=== PATIENT | male | born 1990 | race Caucasian/White ===

== ENCOUNTER 2019-08-07 02:10 | Inpatient (IN) | payer OTHER ==
[~2019-08-07] VITALS: Ht 165.1 cm; Wt 63.6 kg
[2019-08-07] MEDS ORDERED: TETanus/Pertussis (Acell)/Diphther VAC/PF (Tdap-Adult) 0.5ml syringe IMVAC ONE (02:20)
[2019-08-07] MEDS ORDERED: ceFAZolin 1000mg inj IV ONE (02:20)
[2019-08-07] MEDS ORDERED: bacitracin 15gm ointment TP ONE (02:20)
[2019-08-07] MEDS ORDERED: gentamicin in saline, iso-osm 80 MG/50 ML premix IV ONE (02:20)
[2019-08-07] MEDS ORDERED: normal saline 1000ml 1,000 ML IVB ONE ×5 (02:23→05:20)
[2019-08-07] MEDS ORDERED: normal saline 1000ML IV soln IVB ONE (02:25)
[2019-08-07] MEDS ORDERED: KETAMINE IV ONE (02:25)
[2019-08-07] MEDS ORDERED: NORMAL SALINE IV ONE (02:25)
[2019-08-07] MEDS ORDERED: LORazepam 2 mg/ml vial IV ONE (02:25)
[2019-08-07] MEDS ORDERED: haloperidol lactate 5mg/ml inj IM ONE ×2 (02:30)
[2019-08-07] MEDS ORDERED: diphenhydrAMINE 50 mg/ml inj IM ONE ×2 (02:30)
[2019-08-07] MEDS ORDERED: LORazepam 2 mg/ml vial IM ONE (02:30)
[2019-08-07] MEDS ORDERED: cefazolin/dext.iso 2gm/100ml 100 ML IV ONE (02:35)
[2019-08-07] MEDS ORDERED: gentamicin inj 80 MG in normal saline 100ml IV soln 100 ML IV ONE (02:40)
[2019-08-07 02:49] LABS: BASOPHILS # (AUTO) 0.1 X10'3 (0-0.2); BASOPHILS % (AUTO) 1.2 % (0-1); EOSINOPHILS # (AUTO) 0.1 X10'3 (0-0.9); EOSINOPHILS % (AUTO) 1.5 % (0-6); HEMATOCRIT 40.5 % (42.0-52.0); HEMOGLOBIN 13.7 g/dl (14.0-17.9); LYMPHOCYTES # (AUTO) 2.5 X10'3 (1.1-4.8); LYMPHOCYTES % (AUTO) 29.8 % (21-51); MEAN CORPUSCULAR HGB CONC 33.8 g/dL (33.0-36.5); MEAN CORPUSCULAR VOLUME 94.7 FL (78-98); MEAN PLATELET VOLUME 8.8 FL (7.4-10.4); MONOCYTES # (AUTO) 0.5 X10'3 (0-0.9); MONOCYTES % (AUTO) 5.9 % (2-12); NEUTROPHILS # (AUTO) 5.1 X10'3 (1.8-7.7); NEUTROPHILS % (AUTO) 61.6 % (42-75); PLATELET COUNT 299 X10'3 (140-440); RED BLOOD COUNT 4.27 X10'6 (4.70-6.10); RED CELL DISTRIBUTION WIDTH 13.2 % (11.5-14.5); WHITE BLOOD COUNT 8.4 X10'3 (4.5-11.0)
--- NOTE | 2019-08-07 02:52 | NUR ---
left lower leg involvement with multiple gashes. 7x2 cm front of leg 4x5 cm front of leg 7x2 cm behind leg 2x1 cm behind leg 3x 0.5cm behind leg
[2019-08-07 03:01] LABS: PARTIAL THROMBOPLASTIN TIME 23 SECONDS (22-32)
[2019-08-07 03:04] LABS: ALANINE AMINOTRANSFERASE 31 U/L (12-78); ALBUMIN 4.1 G/DL (3.4-5.0); ALBUMIN/GLOBULIN RATIO 1.2 (1.1-1.5); ALKALINE PHOSPHATASE 60 IU/L (46-116); ANION GAP 11 (8-16); ASPARTATE AMINO TRANSFERASE 34 U/L (10-37); BILIRUBIN,TOTAL 0.4 MG/DL (0.1-1.0); BLOOD UREA NITROGEN 13 MG/DL (7-18); BUN/CREATININE RATIO 7.4 (5.4-32.0); CALCIUM 8.7 MG/DL (8.5-10.1); CHLORIDE 106 MMOL/L (99-107); CREATININE 1.76 MG/DL (0.60-1.10); GLUCOSE 136 MG/DL (70-104); POTASSIUM 3.8 MMOL/L (3.5-5.1); SODIUM 143 MMOL/L (135-145); TOTAL CARBON DIOXIDE 26.2 MMOL/L (24-32); TOTAL PROTEIN 7.5 G/DL (6.4-8.2); eGFR 47 ML/MIN
[2019-08-07 03:20] LABS: ETHANOL 0.326 GM/DL (0.0-0.010)
[2019-08-07] MEDS ORDERED: LIDOcaine 1% 30ml preserv. free vial IJ ONE (03:20)
--- NOTE | 2019-08-07 03:24 | NUR ---
at suturing now
[2019-08-07] MEDS ORDERED: haloperidol lactate 5mg/ml inj IM STA (03:25)
[2019-08-07] MEDS ORDERED: diphenhydrAMINE 50 mg/ml inj IV STA (03:25)
--- NOTE | 2019-08-07 03:26 | NUR ---
pt starting to stir and resist so MD ordered more medication.
[2019-08-07 03:34] LABS: CLARITY,URINE CLEAR (Clear); COLOR,URINE YELLOW (Yellow); GLUCOSE, URINE NEGATIVE (Neg); KETONES,URINE NEGATIVE (Neg); LEUKOCYTE ESTERASE ,URINE NEGATIVE (Neg); NITRITES, URINE NEGATIVE (Neg); OCCULT BLOOD,URINE NEGATIVE (Neg); PH,URINE 5.5 (4.8-8.0); PROTEIN,URINE NEGATIVE (Neg); UROBILINOGEN,URINE 0.2 E.U/dL (0.2-1.0)
[2019-08-07 03:42] LABS: UA COLLECTION TYPE STRAIGHT CATH
--- NOTE | 2019-08-07 03:43 | NUR ---
pt resting, md injecting more lidocaine into lateral calf for suture prep
[2019-08-07 03:45] LABS: URINE AMPHETAMINE SCREEN NEGATIVE (Neg); URINE BARBITUATE SCREEN NEGATIVE (Neg); URINE BENZODIAZEPINES SCREEN NEGATIVE (Neg); URINE CANNABINOID SCREEN NEGATIVE (Neg); URINE COCAINE SCREEN NEGATIVE (Neg); URINE METHADONE SCREEN NEGATIVE (Neg); URINE OPIATE SCREEN NEGATIVE (Neg); URINE PHENCYCLIDINE SCREEN NEGATIVE (Neg)
--- NOTE | 2019-08-07 03:54 | NUR ---
pt starting to awaken ordered etomidate
[2019-08-07] MEDS ORDERED: etomidate 2mg/ml inj. IV ONE ×4 (03:55→05:40)
--- NOTE | 2019-08-07 03:57 | NUR ---
RT at BS
--- NOTE | 2019-08-07 03:57 | NUR ---
etomidate 10 mg ordered IV per MD, so given. wants etomidate in incriments. NRB 15L
--- NOTE | 2019-08-07 04:05 | NUR ---
gave pt etomidate 5 mg IV per MD order.
--- NOTE | 2019-08-07 04:13 | NUR ---
pt starting to move around again, ordered etomidate 5 mg IV now
[2019-08-07] MEDS ORDERED: fentaNYL/PF 50MCG/1 ML 2ML syringe IV ONE (04:15)
--- NOTE | 2019-08-07 04:19 | NUR ---
adm etomidate 5 mg IV per MD order, MD at BS suturing.
--- NOTE | 2019-08-07 04:21 | NUR ---
ordered and adm fentanyl 50mcg IV per MD order. Pt was moving around.
[2019-08-07] MEDS ORDERED: MIDAZolam 5mg/ml 2ml vial IV ONE (04:25)
--- NOTE | 2019-08-07 04:27 | NUR ---
adm versed 5 mg IV
--- NOTE | 2019-08-07 04:35 | NUR ---
His bp decreased so another liter of NS ordered and hung on pressure bag. Bag #3 is nearly is as well. I gave him etomidate 5 mg IV as well as the versed.
--- NOTE | 2019-08-07 04:42 | NUR ---
still at suturing. He has completed the anterior lower leg. working on lateral lower leg now.
--- NOTE | 2019-08-07 04:46 | NUR ---
bag #3 of NS infused. The 4th has been running and continues to infuse on pressure bag.
--- NOTE | 2019-08-07 05:02 | NUR ---
he was moving again, so another etomidate 5 mg IV adm per MD orders.
--- NOTE | 2019-08-07 05:03 | NUR ---
he is still moving a bit.
--- NOTE | 2019-08-07 05:11 | NUR ---
flipped him onto his tummy and adm etomidate 5 mg IV for him awakening. suturing back of calf.
--- NOTE | 2019-08-07 05:18 | NUR ---
adm etomidate 10 mg IV
--- NOTE | 2019-08-07 05:20 | NUR ---
bp dropped. Started NS 1L bolus and this is liter #5
--- NOTE | 2019-08-07 05:23 | NUR ---
bp improving 90/45
--- NOTE | 2019-08-07 05:31 | NUR ---
Adm etomidate 10 mg per MD order, and I also ordered it. The patient was moving again. He is maintaining VSS and RT has remained at BS. MD informed police that the patient will be admitted.
--- NOTE | 2019-08-07 05:34 | NUR ---
He seems to be still. still suturing.
--- NOTE | 2019-08-07 05:37 | NUR ---
he is moving and moaning and fighting. MD ordered another 5 mg of etomidate IV. So done out of bottle that is opened.
--- NOTE | 2019-08-07 05:48 | NUR ---
done suturing. He wants it washed really good, bacitracin, dressings.
--- NOTE | 2019-08-07 05:57 | NUR ---
wounds cleansed, bacitracin to all sites and then xeroform placed and now 4 x 4s, layer of kerlix roll and then coban.
--- NOTE | 2019-08-07 06:00 | NUR ---
Pt repositioned to his back, linen changed and he is covered in warm blankets and lights dimmed. VSS.
[2019-08-07] MEDS ORDERED: ondansetron/PF 4mg/2ml inj IV PRN ×2 (06:40→09:35)
--- NOTE | 2019-08-07 06:44 | NUR ---
Pt somnolent from procedures;unable to complete med rec @ this time.
[2019-08-07] MEDS: fentaNYL/PF 50MCG/1 ML 2ML syringe IV PRN ×4 (06:48→11:56)
--- NOTE | 2019-08-07 06:59 | NUR ---
pt belongings: cowboy boots, black jeans, belt w/ silver buckle, wallet.
--- NOTE | 2019-08-07 07:28 | NUR ---
Discussed pt's BP w/ edmd Yin; no new orders received @ this time.
[2019-08-07] MEDS ORDERED: piperacillin/tazo 3.375gm/50ml 50 ML IV ONE (07:30)
[2019-08-07 08:05] LABS: MEAN PLATELET VOLUME 8.7 FL (7.4-10.4); RED BLOOD COUNT 3.24 X10'6 (4.70-6.10)
[2019-08-07 08:07] LABS: ALANINE AMINOTRANSFERASE 29 U/L (12-78); ALBUMIN 3.3 G/DL (3.4-5.0); ALBUMIN/GLOBULIN RATIO 1.3 (1.1-1.5); ALKALINE PHOSPHATASE 45 IU/L (46-116); ANION GAP 10 (8-16); ASPARTATE AMINO TRANSFERASE 62 U/L (10-37); BASOPHILS % (AUTO) 0.2 % (0-1); BILIRUBIN,TOTAL 0.3 MG/DL (0.1-1.0); BLOOD UREA NITROGEN 13 MG/DL (7-18); BUN/CREATININE RATIO 10.2 (5.4-32.0); CALCIUM 7.1 MG/DL (8.5-10.1); CHLORIDE 113 MMOL/L (99-107); CREATININE 1.27 MG/DL (0.60-1.10); EOSINOPHILS % (AUTO) 0 % (0-6); GLUCOSE 104 MG/DL (70-104); HEMATOCRIT 31.1 % (42.0-52.0); HEMOGLOBIN 10.7 g/dl (14.0-17.9); LYMPHOCYTES # (AUTO) 1.2 X10'3 (1.1-4.8); LYMPHOCYTES % (AUTO) 9.8 % (21-51); MEAN CORPUSCULAR HEMOGLOBIN 32.9 PG (27.0-31.0); MEAN CORPUSCULAR HGB CONC 34.4 g/dL (33.0-36.5); MEAN CORPUSCULAR VOLUME 95.7 FL (78-98); MONOCYTES # (AUTO) 0.9 X10'3 (0-0.9); MONOCYTES % (AUTO) 7.6 % (2-12); NEUTROPHILS # (AUTO) 9.8 X10'3 (1.8-7.7); NEUTROPHILS % (AUTO) 82.4 % (42-75); PLATELET COUNT 195 X10'3 (140-440); POTASSIUM 4.2 MMOL/L (3.5-5.1); RED CELL DISTRIBUTION WIDTH 12.7 % (11.5-14.5); SODIUM 145 MMOL/L (135-145); TOTAL CARBON DIOXIDE 21.6 MMOL/L (24-32); TOTAL PROTEIN 5.9 G/DL (6.4-8.2); WHITE BLOOD COUNT 11.9 X10'3 (4.5-11.0); eGFR 68 ML/MIN
--- NOTE | 2019-08-07 08:15 | NUR ---
complete linen change performed; missed urinal.
[2019-08-07 08:30] LABS: CREATINE KINASE 2946 U/L (39-308)
--- NOTE | 2019-08-07 09:33 | NUR ---
1 dose Fentanyl given @ 0832; additional 1ml administered from that same vial @ 0932. No waste from vial; note added to [employer]
[2019-08-07] MEDS ORDERED: dextrose 50%-water 50ml dispensing syringe IV PRN (09:35)
[2019-08-07] MEDS ORDERED: HYDROcodone/acetaminophen 5mg/325mg tablet PO PRN (09:35)
[2019-08-07] MEDS ORDERED: potassium Cl 20 mEq SR tablet PO PRN ×2 (09:35)
[2019-08-07] MEDS ORDERED: potassium CL 10mEq/100ml bag 100 ML IV PRN ×2 (09:35)
[2019-08-07] MEDS ORDERED: acetaminophen 650mg rectal suppository RC PRN (09:35)
[2019-08-07] MEDS ORDERED: magnesium 4gm in 100ml NS 100 ML IV PRN (09:35)
[2019-08-07] MEDS ORDERED: LORazepam 2 mg/ml vial IV PRN (09:35)
[2019-08-07] MEDS ORDERED: magnesium Cl slow-release 64mg tablet PO PRN (09:35)
[2019-08-07] MEDS ORDERED: magnesium hydroxide 30ml (MOM) UD suspension PO PRN (09:35)
[2019-08-07] MEDS ORDERED: thiamine 100mg/ml 2ml inj. IV ONE (09:35)
[2019-08-07] MEDS ORDERED: haloperidol lactate 5mg/ml inj IM PRN (09:35)
[2019-08-07] MEDS ORDERED: diphenhydrAMINE 25mg capsule PO PRN (09:35)
[2019-08-07] MEDS ORDERED: magnesium 2GM in 50ml NS 50 ML IV PRN (09:35)
[2019-08-07] MEDS ORDERED: bisacodyl 10mg suppository rectal RC PRN (09:35)
[2019-08-07] MEDS ORDERED: acetaminophen 325mg tablet PO PRN ×2 (09:35)
[2019-08-07] MEDS ORDERED: morphine 2 MG/ML inj. syringe IV PRN (09:35)
[2019-08-07] MEDS ORDERED: haloperidol 5mg tablet PO PRN (09:35)
[2019-08-07] MEDS ORDERED: mag hydrox/Alum hydrox/simeth 30ml oral suspension PO PRN (09:35)
[2019-08-07] MEDS: dextrose 5%-normal saline 1,000 ML IV SCH ×2 (09:57→19:12)
[2019-08-07 10:06] LABS: ANISOCYTOSIS 1+; PLATELET ESTIMATE NORMAL
[2019-08-07 10:14] LABS: HEMOGLOBIN A1C 5.1 % (4.5-6.2)
--- NOTE | 2019-08-07 11:08 | NUR ---
spoke with pt's father Caio Sinclair. please call with any updates at [phone]
--- NOTE | 2019-08-07 11:23 | NUR ---
Pt AOX3. Ice chips provided. Lunch tray order confirmed.
--- NOTE | 2019-08-07 11:52 | NUR ---
called report to andres CHENG.
--- NOTE | 2019-08-07 12:00 | NUR ---
Patient in room [facility] 4022B. I have received report from PROSPER BOONE IN ED and had the opportunity to ask questions and assume patient care AT 1215.
[2019-08-07] MEDS ORDERED: NO HOME MEDS (12:14)
[2019-08-07 12:15] VITALS: BP 127/102
[2019-08-07] MEDS: HYDROcodone/acetaminophen 10/325mg tab PO PRN ×2 (13:26→21:01)
[2019-08-07 18:00] VITALS: BP 137/76
--- NOTE | 2019-08-07 18:15 | NUR ---
Patient in room ORTHO 4022. I have received report from Carly CHENG and had the opportunity to ask questions and assume patient care.
--- NOTE | 2019-08-07 18:44 | NUR ---
Problems reprioritized. Patient report given, questions answered & plan of care reviewed with PROSPER PETE.
[2019-08-07] MEDS: propranolol 10mg tablet PO SCH (19:12)
[2019-08-07] MEDS: K and/or MAG REPLACEMENT MC SCH (20:00)
[2019-08-07 22:00] VITALS: BP 119/56
[2019-08-08] VITALS (22 sets, daily range): BP systolic 119–145; BP diastolic 61–91
[2019-08-08] MEDS: dextrose 5%-normal saline 1,000 ML IV SCH ×4 (02:40→22:14)
[2019-08-08] MEDS: HYDROcodone/acetaminophen 10/325mg tab PO PRN ×4 (02:54→22:14)
[2019-08-08 06:08] LABS: BASOPHILS % (AUTO) 0.2 % (0-1); EOSINOPHILS % (AUTO) 0.2 % (0-6); HEMATOCRIT 28.7 % (42.0-52.0); HEMOGLOBIN 10.1 g/dl (14.0-17.9); LYMPHOCYTES # (AUTO) 0.7 X10'3 (1.1-4.8); LYMPHOCYTES % (AUTO) 9.7 % (21-51); MEAN CORPUSCULAR HGB CONC 35.1 g/dL (33.0-36.5); MEAN CORPUSCULAR VOLUME 94.1 FL (78-98); MEAN PLATELET VOLUME 9.1 FL (7.4-10.4); MONOCYTES # (AUTO) 0.8 X10'3 (0-0.9); NEUTROPHILS # (AUTO) 6.2 X10'3 (1.8-7.7); NEUTROPHILS % (AUTO) 79.9 % (42-75); PLATELET COUNT 164 X10'3 (140-440); RED BLOOD COUNT 3.06 X10'6 (4.70-6.10); RED CELL DISTRIBUTION WIDTH 12.7 % (11.5-14.5); WHITE BLOOD COUNT 7.7 X10'3 (4.5-11.0)
[2019-08-08 06:14] LABS: ALANINE AMINOTRANSFERASE 38 U/L (12-78); ALBUMIN 3.2 G/DL (3.4-5.0); ALKALINE PHOSPHATASE 46 IU/L (46-116); ANION GAP 4 (8-16); ASPARTATE AMINO TRANSFERASE 111 U/L (10-37); BLOOD UREA NITROGEN 6 MG/DL (7-18); BUN/CREATININE RATIO 6.2 (5.4-32.0); CALCIUM 8.4 MG/DL (8.5-10.1); CHLORIDE 104 MMOL/L (99-107); CHOL/HDL RATIO 2.8 (0.00-4.99); CHOLESTEROL 143 MG/DL (0-200); CREATININE 0.97 MG/DL (0.60-1.10); GLUCOSE 149 MG/DL (70-104); HDL CHOLESTEROL 52 MG/DL (35-60); LDL CHOLESTEROL 73 MG/DL (50-100); MAGNESIUM 1.7 MG/DL (1.5-2.4); PHOSPHORUS 2.3 MG/DL (2.3-4.5); SODIUM 136 MMOL/L (135-145); TOTAL CARBON DIOXIDE 27.6 MMOL/L (24-32); TOTAL PROTEIN 6.3 G/DL (6.4-8.2); TRIGLYCERIDES 107 MG/DL (20-135); eGFR > 90 ML/MIN
[2019-08-08 06:15] LABS: POTASSIUM 3.8 MMOL/L (3.5-5.1)
--- NOTE | 2019-08-08 06:29 | NUR ---
Problems reprioritized. Patient report given, questions answered & plan of care reviewed with Imelda CEHNG.
[2019-08-08] MEDS: K and/or MAG REPLACEMENT MC SCH ×2 (08:00→20:00)
[2019-08-08] MEDS: thiamine 100mg tablet PO SCH (08:58)
[2019-08-08] MEDS: propranolol 10mg tablet PO SCH ×2 (08:58→19:47)
[2019-08-08] MEDS: folic acid 1mg tablet PO SCH (08:58)
[2019-08-08] MEDS: piperacillin/tazo 4.5gm/100ml 100 ML IV SCH ×3 (09:04→23:12)
--- NOTE | 2019-08-08 10:20 | NUR ---
Pt transported to surgery at this time, and will then be transferred to the Surgical Unit post operatively.
[2019-08-08] MEDS ORDERED: fentaNYL/PF 50MCG/1 ML 2ML syringe ONE (11:42)
[2019-08-08] MEDS ORDERED: midazolam 2 mg/2 ml injection ONE (11:42)
[2019-08-08] MEDS ORDERED: dexamethasone sod phosphate 4mg/ml inj. ONE (11:47)
[2019-08-08] MEDS ORDERED: LIDOcaine 2% (20mg/ml) 5ml vial ONE (11:47)
[2019-08-08] MEDS ORDERED: ondansetron/PF 4mg/2ml inj ONE (11:47)
[2019-08-08] MEDS ORDERED: propofol inj 20 ML IV ONE (11:47)
[2019-08-08] MEDS ORDERED: neostigmine methylsulfate 1 MG/ML 10ml vial ONE (11:47)
[2019-08-08] MEDS ORDERED: sevoflurane 250ml liquid IH ONE (11:47)
[2019-08-08] MEDS ORDERED: glycopyrrolate 0.2mg/ml inj ONE (11:47)
[2019-08-08] MEDS ORDERED: rocuronium 10mg/ml inj IV ONE (11:47)
[2019-08-08] MEDS ORDERED: ringers solution, lacted 1,000 ML IV SCH (12:16)
[2019-08-08] MEDS ORDERED: morphine 4 MG/ML inj SYRINge IV PRN (12:20)
[2019-08-08] MEDS ORDERED: meperidine/PF 25mg/ml syringe IV PRN ×3 (12:20)
[2019-08-08] MEDS ORDERED: morphine 2 MG/ML inj. syringe IV PRN (12:20)
[2019-08-08] MEDS ORDERED: ondansetron/PF 4mg/2ml inj IV PRN (12:20)
[2019-08-08] MEDS ORDERED: proCHLORperazine 10 MG/2 ml inj IV PRN (12:20)
[2019-08-08] MEDS ORDERED: meperidine/PF 50mg/ml syringe ONE (13:09)
--- NOTE | 2019-08-08 13:11 | NUR ---
RECIEVED FROM OR VIA BED ACCOMPANIED BY ANESTHESIOLOGIST DR ROBINS,REPORT GIVEN. 20 GAUGE PIV INTACT AND RUNNING LR AT 100 ML/HR. KERLIX DRESSING TO L U THIGH CDI, WOUND VAC TO LEFT CALF AT 125 MM/HG. PEDAL PULSES PRESENT, VSS, PT DROWSY BUT AROUSES WITH B\NO COMPLAINT OF PAIN AT THIS TIME. ABD SOFT, KNOTT.
--- NOTE | 2019-08-08 14:29 | NUR ---
Patient on the unit.
--- NOTE | 2019-08-08 14:31 | NUR ---
TRANSFERRED VIA BED ACCOMPANIED BY KATHIA RN REPORT GIVEN. 20 GAUGE PIV INTACT AND RUNNING LR AT 100 ML/HR. KERLIX DRESSING TO L U THIGH CDI, WOUND VAC TO LEFT CALF AT 125 MM/HG. PEDAL PULSES PRESENT, VSS, PT DROWSY BUT AROUSES WITH B\NO COMPLAINT OF PAIN AT THIS TIME. ABD SOFT, KNOTT.
--- NOTE | 2019-08-08 17:52 | NUR ---
Problems reprioritized. Patient report given, questions answered & plan of care reviewed with Darrel CHENG.
--- NOTE | 2019-08-08 18:19 | NUR ---
Patient in room [facility]. I have received report from Darrel CHENG and had the opportunity to ask questions and assume patient care.
[2019-08-08] MEDS: morphine 2 MG/ML inj. syringe IV PRN (19:20)
--- NOTE | 2019-08-08 23:56 | NUR ---
Patient in room [facility]. I have received report from PROSPER Rojo and had the opportunity to ask questions and assume patient care.
--- NOTE | 2019-08-08 23:57 | NUR ---
Report given to Jennifer CHENG
[2019-08-09] MEDS: HYDROcodone/acetaminophen 10/325mg tab PO PRN ×6 (02:09→23:46)
[2019-08-09] MEDS: dextrose 5%-normal saline 1,000 ML IV SCH ×2 (04:52→13:29)
[2019-08-09 05:16] LABS: BASOPHILS % (AUTO) 0.1 % (0-1); EOSINOPHILS % (AUTO) 0 % (0-6); HEMATOCRIT 25.3 % (42.0-52.0); HEMOGLOBIN 8.8 g/dl (14.0-17.9); LYMPHOCYTES # (AUTO) 0.7 X10'3 (1.1-4.8); LYMPHOCYTES % (AUTO) 6.1 % (21-51); MEAN CORPUSCULAR HGB CONC 34.6 g/dL (33.0-36.5); MEAN CORPUSCULAR VOLUME 95.2 FL (78-98); MEAN PLATELET VOLUME 9.3 FL (7.4-10.4); MONOCYTES % (AUTO) 8.3 % (2-12); NEUTROPHILS # (AUTO) 10.1 X10'3 (1.8-7.7); NEUTROPHILS % (AUTO) 85.5 % (42-75); PLATELET COUNT 172 X10'3 (140-440); RED BLOOD COUNT 2.65 X10'6 (4.70-6.10); RED CELL DISTRIBUTION WIDTH 12.7 % (11.5-14.5); WHITE BLOOD COUNT 11.9 X10'3 (4.5-11.0)
[2019-08-09 05:29] LABS: ALANINE AMINOTRANSFERASE 35 U/L (12-78); ALBUMIN 2.9 G/DL (3.4-5.0); ALBUMIN/GLOBULIN RATIO 0.9 (1.1-1.5); ALKALINE PHOSPHATASE 43 IU/L (46-116); ANION GAP 2 (8-16); ASPARTATE AMINO TRANSFERASE 84 U/L (10-37); BILIRUBIN,TOTAL 0.7 MG/DL (0.1-1.0); BLOOD UREA NITROGEN 6 MG/DL (7-18); BUN/CREATININE RATIO 5.1 (5.4-32.0); CALCIUM 8.6 MG/DL (8.5-10.1); CHLORIDE 105 MMOL/L (99-107); CREATININE 1.18 MG/DL (0.60-1.10); GLUCOSE 133 MG/DL (70-104); MAGNESIUM 1.9 MG/DL (1.5-2.4); POTASSIUM 3.7 MMOL/L (3.5-5.1); SODIUM 138 MMOL/L (135-145); TOTAL PROTEIN 6.3 G/DL (6.4-8.2); eGFR 74 ML/MIN
--- NOTE | 2019-08-09 06:13 | NUR ---
Problems reprioritized. Patient report given, questions answered & plan of care reviewed with PROSPER Juarez.
--- NOTE | 2019-08-09 06:31 | NUR ---
Patient in room [facility]. I have received report from PROSPER MARTINEZ and had the opportunity to ask questions and assume patient care.
[2019-08-09 07:22] VITALS: BP 122/71
[2019-08-09] MEDS: folic acid 1mg tablet PO SCH (07:32)
[2019-08-09] MEDS: piperacillin/tazo 4.5gm/100ml 100 ML IV SCH ×3 (07:32→23:45)
[2019-08-09] MEDS: thiamine 100mg tablet PO SCH (07:33)
[2019-08-09] MEDS: heparin, porcine 5000 units/ml vial SQ SCH ×2 (07:33→19:28)
[2019-08-09] MEDS: propranolol 10mg tablet PO SCH ×2 (07:33→19:27)
[2019-08-09] MEDS: K and/or MAG REPLACEMENT MC SCH ×2 (07:39→20:00)
[2019-08-09] MEDS: morphine 2 MG/ML inj. syringe IV PRN (09:00)
[2019-08-09] MEDS ORDERED: LORazepam 1 MG tablet PO PRN (09:35)
[2019-08-09] MEDS ORDERED: LORazepam 2 mg/ml vial IV PRN (09:35)
[2019-08-09 11:00] VITALS: BP 127/59
--- NOTE | 2019-08-09 14:45 | NUR ---
WOUND VAC EDUCATION PROVIDED BY WOUND CARE 1. Patient instructed to call the Wound Center or their Home Health Agency immediately if: * They notice a change in the color or amount of the fluid in the canister. * Their wound looks more red than usual or has a foul smell. * The skin around their wound looks reddened or irritated. * The dressing feels loose or appears to be loose. * They experience any increase or changes in their pain. * The alarm will not turn off. 2. Patient instructed that they should not be disconnected from suction for more than 2 hours at a time. * If they are not able to get the suction back on, they need to remove the dressing and take all of the foam out of the wound. * Then moisten sterile gauze with normal saline and place on/in the wound. * Change the dressing once a day until arrangements have been made to replace the wound vac dressing. 3. Patient instructed to turn the wound vac machine OFF and call 911 or go to the ED immediately if their canister fills rapidly with blood. 4. If any of these occur while in the hospital tell a nurse immediately. WOUND INFECTION EDUCATION PROVIDED BY WOUND CARE 1. Patient instructed to call their primary doctor, or go the ED immediately if any of the following symptoms occur: * Increased pain in wound * Increase in drainage from the wound * Redness in the skin surrounding the wound * Warmth in the skin surrounding the wound * Bleeding from the wound * Temperature of 101 or greater 2. If any of these occur while in the hospital tell a nurse immediately. Addendum: 08/09/19 at 1446 by Deshawn Machuca RN Amended: Links added.
[2019-08-09] MEDS ORDERED: LIDOcaine 4% (40 mg/ml) topical solution 50ml TP PRN (15:00)
--- NOTE | 2019-08-09 17:46 | NUR ---
Call from Security that patient had hot food dropped off for him. Went down to security desk to apple picking supervisor patient's food to deliver to him. Patient had brown paper bag with hot food container and a fountain drink cup with [employer] label. Noticed that patient's fountain drink with just ice and no liquid in it had a dark discoloration at bottom of ice. Shook the ice in the cup to the side and noticed what appeared to be a hockey puck disc. Found a sealed tobacco chew container at the bottom of the ice cup. Let patient know that tobacco chew was found in the cup and per hospital policy he is not able to have it therefore was placed in small ziplock bag with his name label and placed in desk near chemistry quality control technician. chemistry quality control technician, Yumi aware. Patient's food given to patient. Offered patient that Dr. Farr be notified for nicotine patch or nicotine gum which patient declined. Will continue to monitor.
--- NOTE | 2019-08-09 18:41 | NUR ---
Problems reprioritized. Patient report given, questions answered & plan of care reviewed with fred RN.
[2019-08-09 19:30] VITALS: BP 130/67
[2019-08-09] MEDS: nicotine 21mg patch - 24 hr TD SCH (21:40)
[2019-08-10] VITALS: BP 123/69
[2019-08-10] MEDS: HYDROcodone/acetaminophen 10/325mg tab PO PRN ×5 (04:30→23:56)
[2019-08-10 05:39] LABS: BASOPHILS % (AUTO) 0.4 % (0-1); EOSINOPHILS # (AUTO) 0.1 X10'3 (0-0.9); EOSINOPHILS % (AUTO) 1.2 % (0-6); HEMATOCRIT 25.4 % (42.0-52.0); HEMOGLOBIN 8.7 g/dl (14.0-17.9); LYMPHOCYTES # (AUTO) 1.4 X10'3 (1.1-4.8); MEAN CORPUSCULAR HEMOGLOBIN 32.3 PG (27.0-31.0); MEAN CORPUSCULAR HGB CONC 34.1 g/dL (33.0-36.5); MEAN CORPUSCULAR VOLUME 94.9 FL (78-98); MEAN PLATELET VOLUME 9.4 FL (7.4-10.4); MONOCYTES # (AUTO) 0.4 X10'3 (0-0.9); MONOCYTES % (AUTO) 6.8 % (2-12); NEUTROPHILS # (AUTO) 4.5 X10'3 (1.8-7.7); NEUTROPHILS % (AUTO) 69.6 % (42-75); PLATELET COUNT 186 X10'3 (140-440); RED BLOOD COUNT 2.68 X10'6 (4.70-6.10); RED CELL DISTRIBUTION WIDTH 12.4 % (11.5-14.5); WHITE BLOOD COUNT 6.5 X10'3 (4.5-11.0)
[2019-08-10 06:08] LABS: ALANINE AMINOTRANSFERASE 42 U/L (12-78); ALBUMIN/GLOBULIN RATIO 0.8 (1.1-1.5); ALKALINE PHOSPHATASE 40 IU/L (46-116); ANION GAP 8 (8-16); ASPARTATE AMINO TRANSFERASE 91 U/L (10-37); BILIRUBIN,TOTAL 0.6 MG/DL (0.1-1.0); BLOOD UREA NITROGEN 7 MG/DL (7-18); BUN/CREATININE RATIO 6.1 (5.4-32.0); CALCIUM 8.7 MG/DL (8.5-10.1); CHLORIDE 104 MMOL/L (99-107); CREATININE 1.14 MG/DL (0.60-1.10); GLUCOSE 87 MG/DL (70-104); MAGNESIUM 1.8 MG/DL (1.5-2.4); PHOSPHORUS 2.7 MG/DL (2.3-4.5); POTASSIUM 3.3 MMOL/L (3.5-5.1); SODIUM 141 MMOL/L (135-145); TOTAL CARBON DIOXIDE 29.2 MMOL/L (24-32); TOTAL PROTEIN 6.6 G/DL (6.4-8.2); eGFR 77 ML/MIN
--- NOTE | 2019-08-10 06:46 | NUR ---
Patient in room [facility]. I have received report from PROSPER Tolliver and had the opportunity to ask questions and assume patient care.
[2019-08-10 07:30] VITALS: BP 147/66
[2019-08-10] MEDS: K and/or MAG REPLACEMENT MC SCH ×2 (08:00→20:27)
[2019-08-10] MEDS: piperacillin/tazo 4.5gm/100ml 100 ML IV SCH ×3 (08:18→23:56)
[2019-08-10] MEDS: propranolol 10mg tablet PO SCH ×2 (08:19→20:19)
[2019-08-10] MEDS: thiamine 100mg tablet PO SCH (08:19)
[2019-08-10] MEDS: heparin, porcine 5000 units/ml vial SQ SCH ×2 (08:19→20:20)
[2019-08-10] MEDS: nicotine 21mg patch - 24 hr TD SCH (08:19)
[2019-08-10] MEDS: folic acid 1mg tablet PO SCH (08:19)
[2019-08-10] MEDS: morphine 2 MG/ML inj. syringe IV PRN (09:02)
[2019-08-10] MEDS ORDERED: magnesium 4gm in 100ml NS 100 ML IV PRN (11:10)
[2019-08-10] MEDS ORDERED: magnesium 2GM in 50ml NS 50 ML IV PRN (11:10)
[2019-08-10] MEDS ORDERED: potassium CL 10mEq/100ml bag 100 ML IV PRN (11:10)
[2019-08-10] MEDS ORDERED: potassium Cl 20 mEq SR tablet PO PRN (11:10)
[2019-08-10] MEDS ORDERED: magnesium Cl slow-release 64mg tablet PO PRN (11:10)
[2019-08-10] MEDS: potassium Cl 20 mEq SR tablet PO PRN ×3 (11:21→20:17)
[2019-08-10 12:30] VITALS: BP 127/80
[2019-08-10 18:00] VITALS: BP 154/70
--- NOTE | 2019-08-10 18:59 | NUR ---
Problems reprioritized. Patient report given, questions answered & plan of care reviewed with PROSPER Saab and namrata Sanabria RN.
--- NOTE | 2019-08-10 19:39 | NUR ---
Patient in room [facility]. I have received report from DON CHENG and had the opportunity to ask questions and assume patient care.
[2019-08-10] MEDS: lactobacillus rhamnosus 10,000 MMU CELLS/CAPSULE PO SCH (20:16)
[2019-08-11] VITALS: BP 141/72
[2019-08-11] MEDS: HYDROcodone/acetaminophen 10/325mg tab PO PRN ×3 (04:32→17:33)
[2019-08-11 05:13] LABS: ALANINE AMINOTRANSFERASE 44 U/L (12-78); ALBUMIN 3.2 G/DL (3.4-5.0); ALBUMIN/GLOBULIN RATIO 0.8 (1.1-1.5); ALKALINE PHOSPHATASE 42 IU/L (46-116); ANION GAP 5 (8-16); ASPARTATE AMINO TRANSFERASE 73 U/L (10-37); BILIRUBIN,TOTAL 0.7 MG/DL (0.1-1.0); BLOOD UREA NITROGEN 8 MG/DL (7-18); BUN/CREATININE RATIO 6.6 (5.4-32.0); CALCIUM 9.3 MG/DL (8.5-10.1); CHLORIDE 102 MMOL/L (99-107); CREATININE 1.21 MG/DL (0.60-1.10); GLUCOSE 86 MG/DL (70-104); MAGNESIUM 1.9 MG/DL (1.5-2.4); PHOSPHORUS 5.2 MG/DL (2.3-4.5); POTASSIUM 3.7 MMOL/L (3.5-5.1); SODIUM 138 MMOL/L (135-145); TOTAL CARBON DIOXIDE 31.1 MMOL/L (24-32); TOTAL PROTEIN 7.2 G/DL (6.4-8.2); eGFR 72 ML/MIN
[2019-08-11 05:27] LABS: BASOPHILS % (AUTO) 0.8 % (0-1); EOSINOPHILS # (AUTO) 0.1 X10'3 (0-0.9); EOSINOPHILS % (AUTO) 2.2 % (0-6); HEMATOCRIT 28.2 % (42.0-52.0); HEMOGLOBIN 9.7 g/dl (14.0-17.9); LYMPHOCYTES # (AUTO) 1.7 X10'3 (1.1-4.8); LYMPHOCYTES % (AUTO) 26.6 % (21-51); MEAN CORPUSCULAR HEMOGLOBIN 32.4 PG (27.0-31.0); MEAN CORPUSCULAR HGB CONC 34.2 g/dL (33.0-36.5); MEAN CORPUSCULAR VOLUME 94.7 FL (78-98); MEAN PLATELET VOLUME 8.2 FL (7.4-10.4); MONOCYTES # (AUTO) 0.6 X10'3 (0-0.9); MONOCYTES % (AUTO) 9.5 % (2-12); NEUTROPHILS # (AUTO) 3.9 X10'3 (1.8-7.7); NEUTROPHILS % (AUTO) 60.9 % (42-75); PLATELET COUNT 278 X10'3 (140-440); RED BLOOD COUNT 2.98 X10'6 (4.70-6.10); RED CELL DISTRIBUTION WIDTH 12.7 % (11.5-14.5); WHITE BLOOD COUNT 6.4 X10'3 (4.5-11.0)
[2019-08-11 06:30] VITALS: BP 139/79
--- NOTE | 2019-08-11 06:30 | NUR ---
Patient in room [facility]. I have received report from Elly RN & Katiana RN and had the opportunity to ask questions and assume patient care.
--- NOTE | 2019-08-11 06:32 | NUR ---
Problems reprioritized. Patient report given, questions answered & plan of care reviewed with Karen RN.
[2019-08-11] MEDS: K and/or MAG REPLACEMENT MC SCH (06:50)
[2019-08-11] MEDS: nicotine 21mg patch - 24 hr TD SCH ×2 (08:00→08:25)
[2019-08-11] MEDS: folic acid 1mg tablet PO SCH (08:25)
[2019-08-11] MEDS: lactobacillus rhamnosus 10,000 MMU CELLS/CAPSULE PO SCH (08:25)
[2019-08-11] MEDS: thiamine 100mg tablet PO SCH (08:25)
[2019-08-11] MEDS: propranolol 10mg tablet PO SCH (08:25)
[2019-08-11] MEDS: piperacillin/tazo 4.5gm/100ml 100 ML IV SCH (08:26)
[2019-08-11] MEDS: heparin, porcine 5000 units/ml vial SQ SCH (08:26)
[2019-08-11] MEDS ORDERED: LORazepam 1 MG tablet PO PRN (09:35)
[2019-08-11] MEDS ORDERED: LORazepam 2 mg/ml vial IV PRN (09:35)
[2019-08-11 11:00] VITALS: BP 118/75
--- NOTE | 2019-08-11 11:45 | NUR ---
Initial: Pt admit for medical clearance after being bitten by police canine. Per WOC notes pt with multiple full thickness wounds to left calf and a full thickness wound to left thigh and right calf. Pt with wound VAC to LLE. Pt with increased protein needs for wound healing. Pt seen at bedside provided with written and verbal protein education. Pt confirmed understanding and provided examples of protein sources. Pt currently on a regular diet initially documented with 100% PO intake however down to 50% 08/09 with 100% PO intake of protein at dinner last night and breakfast this morning. Pt endorses a good appetite and states the meals are going good and he is just eating what he likes. Pt with no food preferences at this time and reports looking forward to his lunch and dinner meals. Noted that pt received outside food 08/08 per RN notes. Pt denies food allergies, difficulty chewing/swallowing, or constipation/diarrhea. LBM 08/09. Pt provided with RD contact information. Will continue to follow. Recommendations: 1) Continue regular diet 2) Monitor need for ONS/additional protein 3) Continue routine Thiamine and Folic acid given EtOH hx 4) Routine MVI for wound healing needs with MD approval 5) Bowel care PRN 6) Scaled weights per rx Addendum: 08/11/19 at [address] Amended: Links added.
--- NOTE | 2019-08-11 15:17 | NUR ---
Pt will require VAC dressing changes every 48-72 hours (3x/week). The first dressing change should be Wednesday if HH or Wednesday if being done at the [facility]. Pt was educated on the schedule for VAC changes. Addendum: 08/11/19 at 1519 by Deshawn Machuca RN Amended: Links added.
[2019-08-11] MEDS ORDERED: HYDR-4383 PO (16:45)
[2019-08-11] MEDS ORDERED: LACT1CAP26 PO (16:45)
[2019-08-11] MEDS ORDERED: AMOX-422 PO (16:45)
--- NOTE | 2019-08-11 18:40 | NUR ---
DC inst provided to pt. IV DC'd, tip intact. All belongings sent w/pt. WC to front lobby.
--- NOTE | 2019-08-11 19:05 | NUR ---
pt taken to lobby via wheelchair, greeted at entrance by significant other, transferred to car, all belongings present per pt.
== END 2019-08-11 18:55 | disposition home or self-care (01) | DRG 572 ==
LOC: ER 02:11 → EDBD 09:35 → ED HOLD 09:35 → ORTHO 4S 12:00 → SUR 3N 08-08 14:30
PROVIDERS: ADMIT Family Medicine; ATTEND Family Medicine
PROC: 3E0T3BZ Introduction of Anesthetic Agent into Peripheral Nerves and Plexi, Percutaneous Approach (ICD-10-PCS; 2019-08-07)
PROC: 0JQM3ZZ Repair Left Upper Leg Subcutaneous Tissue and Fascia, Percutaneous Approach (ICD-10-PCS; 2019-08-07)
PROC: 0JQP3ZZ Repair Left Lower Leg Subcutaneous Tissue and Fascia, Percutaneous Approach (ICD-10-PCS; 2019-08-07)
PROC: 0JQP3ZZ Repair Left Lower Leg Subcutaneous Tissue and Fascia, Percutaneous Approach (ICD-10-PCS; 2019-08-07)
PROC: 0JQP3ZZ Repair Left Lower Leg Subcutaneous Tissue and Fascia, Percutaneous Approach (ICD-10-PCS; 2019-08-07)
PROC: 0JBP0ZZ Excision of Left Lower Leg Subcutaneous Tissue and Fascia, Open Approach (ICD-10-PCS; principal; 2019-08-08 11:47)
DX: S81.852A Open bite, left lower leg, initial encounter (principal); S81.812A Laceration without foreign body, left lower leg, initial encounter; F10.229 Alcohol dependence with intoxication, unspecified; F17.200 Nicotine dependence, unspecified, uncomplicated; F41.9 Anxiety disorder, unspecified; I10 Essential (primary) hypertension; W54.0XXA Bitten by dog, initial encounter; Z78.1 Physical restraint status; Z71.6 Tobacco abuse counseling; Z71.41 Alcohol abuse counseling and surveillance of alcoholic; Y93.89 Activity, other specified; Y92.89 Other specified places as the place of occurrence of the external cause; Y99.8 Other external cause status
CPT/HCPCS: 12004; 96365; 96368; 96372; 96375; 99285; Z7506; Z7508; 36415; 73590; 80053; 80061; 80305; 80320; 81003; 82550; 82948; 83036; 83735; 83874; 84100; 85025; 85610; 85730; 86885; 86900; 86901; 87081; 90715; 93971; 97110; 97116; 97161; 97530; 97760; A4618; A6266; A6550; A7000; G0378; J0690; J1100; J1200; J1580; J1630; J1644; J2001; J2060; J2175; J2250; J2270; J2405; J2543; J2704; J2710; J3010; J3411; J3490; J7030; J7042; J7120

== ENCOUNTER 2019-08-14 13:25 | Day surgery (SDC) | payer MEDICAID, OTHER ==
[~2019-08-14 13:25] MED LIST: AMOX-422 PO; HYDR-4383 PO; LACT1CAP26 PO
[2019-08-14] MEDS ORDERED: LIDOcaine 2% 5ml jelly ONE (14:08)
== END 2019-08-14 15:52 | disposition home or self-care (01) ==
LOC: WOUND CARE 13:25
PROVIDERS: ATTEND Nurse Practitioner
DX: S81.852A Open bite, left lower leg, initial encounter (principal); S71.152A Open bite, left thigh, initial encounter; T81.89XA Other complications of procedures, not elsewhere classified, initial encounter; I10 Essential (primary) hypertension; F41.9 Anxiety disorder, unspecified; F17.200 Nicotine dependence, unspecified, uncomplicated; W54.0XXA Bitten by dog, initial encounter; Y93.89 Activity, other specified; Y92.89 Other specified places as the place of occurrence of the external cause; Y99.8 Other external cause status; Z71.6 Tobacco abuse counseling; Y83.8 Other surgical procedures as the cause of abnormal reaction of the patient, or of later complication, without mention of misadventure at the time of the procedure
CPT/HCPCS: 97605

== ENCOUNTER 2019-08-17 09:53 | Day surgery (SDC) | payer MEDICAID ==
[2019-08-17] MEDS ORDERED: LIDOcaine 2% 5ml jelly ONE ×2 (10:39→11:53)
== END 2019-08-17 12:41 | disposition home or self-care (01) ==
LOC: WOUND CARE 09:53
PROVIDERS: ATTEND Nurse Practitioner
DX: T81.89XD Other complications of procedures, not elsewhere classified, subsequent encounter (principal); S81.852D Open bite, left lower leg, subsequent encounter; S71.152D Open bite, left thigh, subsequent encounter; I10 Essential (primary) hypertension; F41.9 Anxiety disorder, unspecified; F17.200 Nicotine dependence, unspecified, uncomplicated; Z71.6 Tobacco abuse counseling; W54.0XXD Bitten by dog, subsequent encounter; Y83.8 Other surgical procedures as the cause of abnormal reaction of the patient, or of later complication, without mention of misadventure at the time of the procedure
CPT/HCPCS: 97597; 97598

== ENCOUNTER 2019-08-21 08:05 | Day surgery (SDC) | payer MEDICAID ==
[~2019-08-21 08:05] MED LIST changes: -AMOX-422 PO
[2019-08-21] MEDS ORDERED: LIDOcaine 2% 5ml jelly ONE (09:19)
== END 2019-08-21 11:34 | disposition home or self-care (01) ==
LOC: WOUND CARE 08:05
PROVIDERS: ATTEND Nurse Practitioner
DX: T81.89XD Other complications of procedures, not elsewhere classified, subsequent encounter (principal); S81.852D Open bite, left lower leg, subsequent encounter; S71.152D Open bite, left thigh, subsequent encounter; I10 Essential (primary) hypertension; F41.9 Anxiety disorder, unspecified; F17.200 Nicotine dependence, unspecified, uncomplicated; Z71.6 Tobacco abuse counseling; W54.0XXD Bitten by dog, subsequent encounter; Y83.8 Other surgical procedures as the cause of abnormal reaction of the patient, or of later complication, without mention of misadventure at the time of the procedure
CPT/HCPCS: 97597; 97598

== ENCOUNTER 2019-08-24 09:45 | Day surgery (SDC) | payer MEDICAID ==
[2019-08-24] MEDS ORDERED: LIDOcaine 2% 5ml jelly ONE (10:44)
== END 2019-08-24 12:51 | disposition home or self-care (01) ==
LOC: WOUND CARE 09:45
PROVIDERS: ATTEND Nurse Practitioner
DX: T81.89XD Other complications of procedures, not elsewhere classified, subsequent encounter (principal); S81.852D Open bite, left lower leg, subsequent encounter; S71.152D Open bite, left thigh, subsequent encounter; L97.122 Non-pressure chronic ulcer of left thigh with fat layer exposed; L97.222 Non-pressure chronic ulcer of left calf with fat layer exposed; L97.822 Non-pressure chronic ulcer of other part of left lower leg with fat layer exposed; I10 Essential (primary) hypertension; F41.9 Anxiety disorder, unspecified; F17.200 Nicotine dependence, unspecified, uncomplicated; Z71.6 Tobacco abuse counseling; W54.0XXD Bitten by dog, subsequent encounter; Y83.8 Other surgical procedures as the cause of abnormal reaction of the patient, or of later complication, without mention of misadventure at the time of the procedure
CPT/HCPCS: 97597; 97598

== ENCOUNTER 2019-08-29 09:20 | Day surgery (SDC) | payer MEDICAID ==
[2019-08-29] MEDS ORDERED: LIDOcaine 2% 5ml jelly ONE (09:55)
== END 2019-08-29 11:00 | disposition home or self-care (01) ==
LOC: WOUND CARE 09:20
PROVIDERS: ATTEND Nurse Practitioner
DX: T81.89XD Other complications of procedures, not elsewhere classified, subsequent encounter (principal); S81.852D Open bite, left lower leg, subsequent encounter; S71.152D Open bite, left thigh, subsequent encounter; L97.122 Non-pressure chronic ulcer of left thigh with fat layer exposed; L97.222 Non-pressure chronic ulcer of left calf with fat layer exposed; L97.822 Non-pressure chronic ulcer of other part of left lower leg with fat layer exposed; I10 Essential (primary) hypertension; F41.9 Anxiety disorder, unspecified; F17.200 Nicotine dependence, unspecified, uncomplicated; Z71.6 Tobacco abuse counseling; W54.0XXD Bitten by dog, subsequent encounter; Y83.8 Other surgical procedures as the cause of abnormal reaction of the patient, or of later complication, without mention of misadventure at the time of the procedure
CPT/HCPCS: 97597; 97598

== ENCOUNTER 2019-09-01 13:38 | Day surgery (SDC) | payer MEDICAID ==
[2019-09-01] MEDS ORDERED: LIDOcaine 2% 5ml jelly ONE (14:06)
== END 2019-09-01 15:50 | disposition home or self-care (01) ==
LOC: WOUND CARE 13:38
PROVIDERS: ATTEND Nurse Practitioner
DX: T81.89XD Other complications of procedures, not elsewhere classified, subsequent encounter (principal); S81.852D Open bite, left lower leg, subsequent encounter; S71.152D Open bite, left thigh, subsequent encounter; L97.122 Non-pressure chronic ulcer of left thigh with fat layer exposed; L97.222 Non-pressure chronic ulcer of left calf with fat layer exposed; L97.822 Non-pressure chronic ulcer of other part of left lower leg with fat layer exposed; I10 Essential (primary) hypertension; F41.9 Anxiety disorder, unspecified; F17.200 Nicotine dependence, unspecified, uncomplicated; Z71.6 Tobacco abuse counseling; W54.0XXD Bitten by dog, subsequent encounter; Y83.8 Other surgical procedures as the cause of abnormal reaction of the patient, or of later complication, without mention of misadventure at the time of the procedure
CPT/HCPCS: 97597; 97598

== ENCOUNTER 2019-09-05 11:20 | Day surgery (SDC) | payer MEDICAID ==
[2019-09-05] MEDS ORDERED: LIDOcaine 2% 5ml jelly ONE (12:20)
== END 2019-09-05 13:05 | disposition home or self-care (01) ==
LOC: WOUND CARE 11:20
PROVIDERS: ATTEND Nurse Practitioner
DX: T81.89XD Other complications of procedures, not elsewhere classified, subsequent encounter (principal); L97.122 Non-pressure chronic ulcer of left thigh with fat layer exposed; L97.222 Non-pressure chronic ulcer of left calf with fat layer exposed; L97.822 Non-pressure chronic ulcer of other part of left lower leg with fat layer exposed; S81.852D Open bite, left lower leg, subsequent encounter; S71.152D Open bite, left thigh, subsequent encounter; I10 Essential (primary) hypertension; F41.9 Anxiety disorder, unspecified; F17.200 Nicotine dependence, unspecified, uncomplicated; Z71.6 Tobacco abuse counseling; W54.0XXD Bitten by dog, subsequent encounter; Y83.8 Other surgical procedures as the cause of abnormal reaction of the patient, or of later complication, without mention of misadventure at the time of the procedure
CPT/HCPCS: 97597; 97598

== ENCOUNTER 2019-09-12 08:55 | Day surgery (SDC) | payer MEDICAID ==
[2019-09-12] MEDS ORDERED: LIDOcaine 2% 5ml jelly ONE (09:22)
== END 2019-09-12 10:32 | disposition home or self-care (01) ==
LOC: WOUND CARE 08:55
PROVIDERS: ATTEND Nurse Practitioner
DX: T81.89XD Other complications of procedures, not elsewhere classified, subsequent encounter (principal); L97.122 Non-pressure chronic ulcer of left thigh with fat layer exposed; L97.222 Non-pressure chronic ulcer of left calf with fat layer exposed; L97.822 Non-pressure chronic ulcer of other part of left lower leg with fat layer exposed; S81.852D Open bite, left lower leg, subsequent encounter; S71.152D Open bite, left thigh, subsequent encounter; I10 Essential (primary) hypertension; F41.9 Anxiety disorder, unspecified; F17.200 Nicotine dependence, unspecified, uncomplicated; Z71.6 Tobacco abuse counseling; W54.0XXD Bitten by dog, subsequent encounter; Y83.8 Other surgical procedures as the cause of abnormal reaction of the patient, or of later complication, without mention of misadventure at the time of the procedure
CPT/HCPCS: 97597

== ENCOUNTER 2019-09-15 08:45 | Day surgery (SDC) | payer MEDICAID | END 2019-09-15 10:12 | disposition home or self-care (01) | LOC: WOUND CARE 08:45 | PROVIDERS: ATTEND Nurse Practitioner | DX: T81.89XD Other complications of procedures, not elsewhere classified, subsequent encounter (principal); L97.122 Non-pressure chronic ulcer of left thigh with fat layer exposed; L97.222 Non-pressure chronic ulcer of left calf with fat layer exposed; L97.822 Non-pressure chronic ulcer of other part of left lower leg with fat layer exposed; S81.852D Open bite, left lower leg, subsequent encounter; S71.152D Open bite, left thigh, subsequent encounter; I10 Essential (primary) hypertension; F41.9 Anxiety disorder, unspecified; F17.200 Nicotine dependence, unspecified, uncomplicated; Z71.6 Tobacco abuse counseling; W54.0XXD Bitten by dog, subsequent encounter; Y83.8 Other surgical procedures as the cause of abnormal reaction of the patient, or of later complication, without mention of misadventure at the time of the procedure | CPT/HCPCS: 97597 ==

== ENCOUNTER 2019-09-19 08:25 | Day surgery (SDC) | payer MEDICAID ==
[2019-09-19] MEDS ORDERED: LIDOcaine 2% 5ml jelly ONE (08:48)
== END 2019-09-19 09:30 | disposition home or self-care (01) ==
LOC: WOUND CARE 08:25
PROVIDERS: ATTEND Nurse Practitioner
DX: T81.89XD Other complications of procedures, not elsewhere classified, subsequent encounter (principal); L97.122 Non-pressure chronic ulcer of left thigh with fat layer exposed; L97.222 Non-pressure chronic ulcer of left calf with fat layer exposed; L97.822 Non-pressure chronic ulcer of other part of left lower leg with fat layer exposed; I10 Essential (primary) hypertension; F41.9 Anxiety disorder, unspecified; F17.200 Nicotine dependence, unspecified, uncomplicated; Z71.6 Tobacco abuse counseling; Y83.8 Other surgical procedures as the cause of abnormal reaction of the patient, or of later complication, without mention of misadventure at the time of the procedure
CPT/HCPCS: 97597

== ENCOUNTER 2019-09-26 08:30 | Day surgery (SDC) | payer MEDICAID ==
[2019-09-26] MEDS ORDERED: LIDOcaine 2% 5ml jelly ONE (09:14)
== END 2019-09-26 09:55 | disposition home or self-care (01) ==
LOC: WOUND CARE 08:30
PROVIDERS: ATTEND Nurse Practitioner
DX: T81.89XD Other complications of procedures, not elsewhere classified, subsequent encounter (principal); L97.122 Non-pressure chronic ulcer of left thigh with fat layer exposed; L97.222 Non-pressure chronic ulcer of left calf with fat layer exposed; L97.822 Non-pressure chronic ulcer of other part of left lower leg with fat layer exposed; I10 Essential (primary) hypertension; F41.9 Anxiety disorder, unspecified; F17.200 Nicotine dependence, unspecified, uncomplicated; Z71.6 Tobacco abuse counseling; Y83.8 Other surgical procedures as the cause of abnormal reaction of the patient, or of later complication, without mention of misadventure at the time of the procedure
CPT/HCPCS: 97597

== ENCOUNTER 2019-10-03 08:31 | Day surgery (SDC) | payer MEDICAID, OTHER ==
[2019-10-03] MEDS ORDERED: LIDOcaine 2% 5ml jelly ONE (08:47)
== END 2019-10-03 09:08 | disposition home or self-care (01) ==
LOC: WOUND CARE 08:31
PROVIDERS: ATTEND Nurse Practitioner
DX: T81.89XD Other complications of procedures, not elsewhere classified, subsequent encounter (principal); L97.122 Non-pressure chronic ulcer of left thigh with fat layer exposed; L97.222 Non-pressure chronic ulcer of left calf with fat layer exposed; L97.822 Non-pressure chronic ulcer of other part of left lower leg with fat layer exposed; I10 Essential (primary) hypertension; F41.9 Anxiety disorder, unspecified; F17.200 Nicotine dependence, unspecified, uncomplicated; Z71.6 Tobacco abuse counseling; Z71.41 Alcohol abuse counseling and surveillance of alcoholic; Y83.8 Other surgical procedures as the cause of abnormal reaction of the patient, or of later complication, without mention of misadventure at the time of the procedure
CPT/HCPCS: 97597

== ENCOUNTER 2019-10-10 08:20 | Day surgery (SDC) | payer MEDICAID, OTHER ==
[2019-10-10] MEDS ORDERED: LIDOcaine 2% 5ml jelly ONE (08:38)
== END 2019-10-10 09:08 | disposition home or self-care (01) ==
LOC: WOUND CARE 08:20
PROVIDERS: ATTEND Nurse Practitioner
DX: T81.89XD Other complications of procedures, not elsewhere classified, subsequent encounter (principal); L97.122 Non-pressure chronic ulcer of left thigh with fat layer exposed; L97.222 Non-pressure chronic ulcer of left calf with fat layer exposed; L97.822 Non-pressure chronic ulcer of other part of left lower leg with fat layer exposed; I10 Essential (primary) hypertension; F41.9 Anxiety disorder, unspecified; F17.200 Nicotine dependence, unspecified, uncomplicated; Z71.6 Tobacco abuse counseling; Z71.41 Alcohol abuse counseling and surveillance of alcoholic; Y83.8 Other surgical procedures as the cause of abnormal reaction of the patient, or of later complication, without mention of misadventure at the time of the procedure
CPT/HCPCS: 97597

== ENCOUNTER 2019-10-17 08:35 | Day surgery (SDC) | payer MEDICAID, OTHER ==
[~2019-10-17 08:35] MED LIST changes: +LIDOcaine 2% 5ml jelly ONE
== END 2019-10-17 09:00 | disposition home or self-care (01) ==
LOC: WOUND CARE 08:35
PROVIDERS: ATTEND Nurse Practitioner
DX: T81.89XD Other complications of procedures, not elsewhere classified, subsequent encounter (principal); L97.122 Non-pressure chronic ulcer of left thigh with fat layer exposed; L97.222 Non-pressure chronic ulcer of left calf with fat layer exposed; L97.822 Non-pressure chronic ulcer of other part of left lower leg with fat layer exposed; I10 Essential (primary) hypertension; F41.9 Anxiety disorder, unspecified; F17.200 Nicotine dependence, unspecified, uncomplicated; Z71.6 Tobacco abuse counseling; Z71.41 Alcohol abuse counseling and surveillance of alcoholic; Y83.8 Other surgical procedures as the cause of abnormal reaction of the patient, or of later complication, without mention of misadventure at the time of the procedure
CPT/HCPCS: 97597

== ENCOUNTER 2019-10-25 08:37 | Day surgery (SDC) | payer MEDICAID, OTHER ==
[~2019-10-25 08:37] MED LIST changes: -LIDOcaine 2% 5ml jelly ONE
[2019-10-25] MEDS ORDERED: LIDOcaine 2% 5ml jelly ONE (09:04)
== END 2019-10-25 09:36 | disposition home or self-care (01) ==
LOC: WOUND CARE 08:37
PROVIDERS: ATTEND Nurse Practitioner
DX: T81.89XD Other complications of procedures, not elsewhere classified, subsequent encounter (principal); L97.122 Non-pressure chronic ulcer of left thigh with fat layer exposed; L97.222 Non-pressure chronic ulcer of left calf with fat layer exposed; L97.822 Non-pressure chronic ulcer of other part of left lower leg with fat layer exposed; I10 Essential (primary) hypertension; F41.9 Anxiety disorder, unspecified; F17.200 Nicotine dependence, unspecified, uncomplicated; Z71.6 Tobacco abuse counseling; Z71.41 Alcohol abuse counseling and surveillance of alcoholic; Y83.8 Other surgical procedures as the cause of abnormal reaction of the patient, or of later complication, without mention of misadventure at the time of the procedure
CPT/HCPCS: 97597